=== PATIENT | male | born 1955 | race Caucasian/White ===

== ENCOUNTER → 2016-05-20 | Outpatient (CLI) | payer OTHER ==
[~2016-05-20] MED LIST: COREG25 MG PO; COREG6.25 MG PO; IBUPROFEN 400400 M2 PO; LANOXIN 0.120.125 M1 PO; LASIX 40 MG TAB40 M2 PO; LISINOPRIL5 MG PO; PACERONE 200 M200 M1 PO; SPIRONOLACTONE25 M1 PO; XARELTO20 MG PO
[2016-05-20 10:14] LABS: CREATININE 1.2 mg/dL (0.6-1.3)
== END ==
LOC: LABMALL 09:37 → CAT 09:37
PROVIDERS: Family Medicine
DX: R19.7 Diarrhea, unspecified (principal)